=== PATIENT | female | born 1955 | race Caucasian/White ===

== ENCOUNTER 2017-09-09 15:05 | Emergency (ER) | payer BC, OTHER ==
[~2017-09-09] VITALS: Ht 167.6 cm; Wt 82.6 kg
--- NOTE | ~2017-09-09 | EKG ---
[place] [address] [facility] [place] [address] ELECTROCARDIOGRAM REPORT Name: DANDY NERI [id number] Admission: 09/09/17 Attend Phys: Discharge: 09/09/17 Date of : 55 Report #: [id number] THIS REPORT FOR: //name// [facility] ED Test Date: 2017-09-09 Test Time: 16:25:08 Pat Name: DANDY NERI Department: Room: Gender: F Title I Teacher: AKHIL : 1955 Requested By: Prabha Blanco Order Number: [id number] MD: Ranjan Barrera Measurements Intervals [place] Rate: 98 P: 57 MD: 139 QRS: -8 QRSD: 84 T: 68 QT: 344 QTc: 440 Interpretive Statements Sinus rhythm No significant abnormality No previous ECG available for comparison Electronically Signed On 09-10-2017 8:12:19 [employer] by Ranjan Barrera [email or web address] <ELECTRONICALLY SIGNED> By: Ranjan Barrera MD, [facility] 09/10/17 0812 1625 1625 Ranjan Barrera MD, FACC /EPI
[~2017-09-09 15:05] MED LIST: ACCUNEB SO1.25 MG/1 INH; ADVAIR 500-501 EACH INH; IBUPROFEN 800800 MG PO; NORCO 5-325 TA1 EACH PO
[2017-09-09 15:40] LABS: BASOPHILS 0.3 % (0.0-2.0); EOSINOPHILS 0.6 % (0.0-3.0); HEMATOCRIT 41.3 % (37.0-47.0); HEMOGLOBIN 14.4 gm/dL (12.0-15.0); MCH 32.4 pg (26.0-34.0); MCHC 34.9 g/dL (28.0-37.0); MCV 92.7 fL (80.0-100.0); MONOCYTES 2.5 % (1.0-8.0); PLATELET COUNT 230 thou/uL (150-400); POLYS 84.6 % (36.0-66.0); RBC 4.45 mil/uL (4.20-5.00); RDW 13.2 % (10.5-14.5); WBC 8.2 thou/uL (4.0-11.0)
[2017-09-09 15:48] LABS: CALCIUM 9.5 mg/dL (8.5-10.1); POTASSIUM 3.8 mmol/L (3.5-5.1)
[2017-09-09] MEDS ORDERED: PROAIR RESPICL90 MCG INH (15:55)
[2017-09-09] MEDS ORDERED: BREO ELLIPTA 21 EACH INH (16:17)
[2017-09-09] MEDS ORDERED: ACCUNEB SO1.25 MG/1 INH (17:24)
[2017-09-09] MEDS ORDERED: PREDNISONE 20 M20 MG PO (17:24)
== END 2017-09-09 17:50 | disposition home or self-care (01) ==
LOC: ER 15:05
PROVIDERS: Physician Assistant
DX: J45.901 Unspecified asthma with (acute) exacerbation (principal); J06.9 Acute upper respiratory infection, unspecified; K57.92 Diverticulitis of intestine, part unspecified, without perforation or abscess without bleeding; Z88.5 Allergy status to narcotic agent; Z98.890 Other specified postprocedural states